=== PATIENT | female | born 1955 | race Caucasian/White ===

== ENCOUNTER 2018-05-07 12:12 | Outpatient (CLI) | payer OTHER ==
[~2018-05-07 12:12] MED LIST: ASCO-90 PO; BIOT25005 PO; CALCIUM PO; CHOL200024 PO; CYAN250013 PO; FLUT9.9S NAS; FOLIC ACID PO; KETO10DR5 EACHEYE; LORA10TA75 PO; NAPR220T77 PO; RANI150T23 PO; TUMS; VITAMIN E PO; ZINC PO
== END 2018-05-07 23:59 | disposition home or self-care (01) ==
LOC: CFH 12:12
PROVIDERS: ATTEND Nurse Practitioner
DX: Z12.31 Encounter for screening mammogram for malignant neoplasm of breast (principal); M85.88 Other specified disorders of bone density and structure, other site
CPT/HCPCS: 77063; 77080; 77067

== ENCOUNTER → 2018-05-22 | Outpatient (CLI) | payer OTHER | END | disposition home or self-care (01) | LOC: CFH 13:33 | PROVIDERS: ATTEND Nurse Practitioner | DX: R92.8 Other abnormal and inconclusive findings on diagnostic imaging of breast (principal) | CPT/HCPCS: 77065 ==

== ENCOUNTER 2018-06-15 10:33 | Outpatient (CLI) | payer OTHER ==
[2018-06-15] MEDS ORDERED: GADOBUTROL 10 MMOL/10 ML VIAL ONE (11:00)
== END 2018-06-15 23:59 | disposition home or self-care (01) ==
LOC: CFH 10:33
PROVIDERS: ATTEND Nurse Practitioner
DX: N63.20 Unspecified lump in the left breast, unspecified quadrant (principal); R92.8 Other abnormal and inconclusive findings on diagnostic imaging of breast; N64.89 Other specified disorders of breast
CPT/HCPCS: 77049; A9585

== ENCOUNTER → 2019-05-25 | Outpatient (CLI) | payer OTHER ==
[~2019-05-25] MED LIST changes: +RANI-467 PO; -RANI150T23 PO
== END | disposition home or self-care (01) ==
LOC: CFH 12:50
PROVIDERS: ATTEND Nurse Practitioner
DX: Z12.31 Encounter for screening mammogram for malignant neoplasm of breast (principal)
CPT/HCPCS: 77067